=== PATIENT | male | born 1975 | race Caucasian/White ===

== ENCOUNTER → 2017-04-21 | Outpatient (CLI) | payer OTHER ==
--- NOTE | 2017-04-21 22:47 | MR ---
EXAMINATION TYPE: MR brain wo/w con DATE OF EXAM: 04/21/2017 COMPARISON: NONE HISTORY: Visual disturbance, lt side hearing loss TECHNIQUE: Multiplanar, multisequence images of the brain and brainstem is performed without and with IV contras t, utilizing 7.5 mL intravenous Gadavist . FINDINGS: Diffusion weighted images demonstrate no evidence of a recent infarct or other diffusion ab normality. There is no worrisome extra-axial fluid collection. The ventricular system and cisternal spaces are normal in size and appearance. The brain volume is age appropriate. Few scattered foci o f T2 hyperintensity are seen throughout the white matter bilaterally for reference elongated 10 x 3 m m right periventricular lesion posterior frontal lobes noted parallel's the adjacent lateral ventricl e. Midline structures demonstrate normal morphology. The craniocervical junction appears within normal limits. Post contrast images demonstrate no abnormal enhancement. The dural venous sinuses appear pa tent. The visualized sinuses are clear and the globes are intact. No suspicious fluid signal in masto id air cells is present. IMPRESSION: Mild to minimal nonspecific white matter changes, consider product of demyelinating disea se among the possible broad differential.
== END | disposition home or self-care (01) ==
LOC: RADMRIMAIN 20:30
PROVIDERS: ATTEND Ophthalmology
DX: H53.9 Unspecified visual disturbance (principal); R68.89 Other general symptoms and signs
CPT/HCPCS: 70553; A9581